=== PATIENT | female | born 1975 | race Two or more races ===

== ENCOUNTER 2025-01-01 00:21 | Emergency (ER) | payer BC, SELFPAY ==
[2025-01-01 00:23] VITALS: BMI 29.2
[2025-01-01 00:36] VITALS: BP 132/84; PULSE 63; RESP 16; TEMP 36.8; O2SAT 98
--- NOTE | 2025-01-01 00:43 | XR_ITS ---
Examination: CT brain head without contrast. 2-D sagittal coronal reconstructions Date and time of exam: January 01, 2025, 0224 hours INDICATIONS: Dizziness headaches and ear pain beginning 1 week ago CTDI: vol (mGy): 51.4 DLP: (mGycm): 971 Technique: Multiple CT axial sections of the brain have been obtained, 5 mm slice thickness. Contrast has not been administered. 2-D sagittal, coronal reconstructions have been obtained Low dose protocols were performed. One or more of the following dose reduction techniques were used; automated exposure control, adjustment of the mA and/or KV according to patient size, use of iterative reconstruction technique. Findings: No significant ventricular enlargement. Intra-axial or extra-axial hemorrhage density is not seen. No mass effect or midline shift Basal cisterns are not remarkable. Fourth ventricle is midline. Cranial vault intact. Impression: Negative for acute hemorrhage, mass effect or midline shift
--- NOTE | 2025-01-01 00:44 | PD.EDRME ---
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
[2025-01-01 01:04] LABS: Basophils # (Auto) 0.1 Thou/mm3 (0.0-0.2); Basophils % (Auto) 1 % (0-2.5); Eosinophils # (Auto) 0.2 Thou/mm3 (0.0-0.5); Eosinophils % (Auto) 3 % (0-10); Hematocrit 37.3 % (36.0-46.0); Hemoglobin 12.4 g/dL (12.0-16.0); Immature Granulocytes Auto 0.01 Thou/mm3 (0.00-0.00); Lymphocytes # (Auto) 3.3 Thou/mm3 (1.0-4.8); Lymphocytes % (Auto) 46 % (10-50); Mean Corpuscular HGB Conc 33.2 g/dl (31.0-37.0); Mean Corpuscular Hemoglobin 30.0 pg (25.0-35.0); Mean Corpuscular Volume 90 fL (80-100); Monocytes # (Auto) 0.6 Thou/mm3 (0.0-0.8); Monocytes % (Auto) 8 % (0-12); Neutrophils # (Auto) 3.0 Thou/mm3 (1.8-7.7); Neutrophils % (Auto) 42 % (37-80); Nucleated Red Blood Cell # 0.00 Thou/mm3 (0.00-0.00); Nucleated Red Blood Cell % 0 /100 WBC (0); Platelet Count 342 Thou/mm3 (140-440); RDW Standard Deviation 42.5 fL (36.4-46.3); Red Blood Count 4.14 Miln/mm3 (4.00-5.20); White Blood Count 7.1 Thou/mm3 (3.6-11.0)
[2025-01-01 01:37] LABS: Alanine Aminotransferase 9 U/L (10-49); Albumin, Serum 4.5 gm/dL (3.5-5.0); Albumin/Globulin Ratio 1.7 (1.2-2.2); Alkaline Phosphatase 77 U/L (46-116); Anion Gap 8 (7-16); Aspartate Amino Transferase 21 U/L (0-34); BUN/Creatinine Ratio 12 Ratio (12-20); Bilirubin,Total 0.3 mg/dL (0.3-1.2); Blood Urea Nitrogen 11 mg/dL (9-23); Calcium 8.9 mg/dL (8.3-10.6); Calcium (Corrected) 8.9 mg/dL (8.5-10.1); Carbon Dioxide 28.0 mMol/L (20.0-31.0); Chloride 105 mMol/L (98-107); Creatinine (Component) 0.9 mg/dL (0.6-1.3); Estimated Creatinine Clearance 74.1 mL/min (>60); Globulin 2.6 gm/dL (2.3-3.5); Glucose 104 mg/dL (74-106); Osmolality,Calculated 280 (275-295); Potassium 4.0 mMol/L (3.4-5.1); Sodium 141 mMol/L (136-145); Total Protein 7.1 gm/dL (5.7-8.2); Troponin I < 0.002 ng/mL (0.0-0.045); eGFR > 60 See Note
[2025-01-01 02:37] LABS: Collection Type, Urine Clean Catch
[2025-01-01 02:43] LABS: Bilirubin,Urine Negative (Negative); Blood,Urine 1+ (Negative); Clarity,Urine Clear (Clear/Hazy); Color,Urine Lt-Yellow (Lt Yel-Yel); Glucose, Urine Negative (Negative); Ketones,Urine Negative (Negative); Leukocyte Esterase,Urine Negative (Negative); Nitrite,Urine Negative (Negative); PH,Urine 7.0 (5.0-7.0); Protein,Urine Negative (Neg - Trace); RBC,Urine 15 /hpf (0-3); Specific Gravity,Urine 1.021 (1.001-1.035); Squamous Epithelial Cell,Urine 7 /hpf (0-5); Urobilinogen,Urine Negative mg/dL (0.0-1.0); WBC,Urine 2 /hpf (0-5)
[2025-01-01 02:54] LABS: HCG Qualitative,Urine Negative
--- NOTE | 2025-01-01 03:05 | PRELIM_ITS ---
CT scan of the head without intravenous contrast (axial sections with sagittal and coronal reformats). January 01, 2025 0224 hours Clinical History: dizziness No prior study is available for comparison. Findings: The evaluation is slightly limited due to motion artifact. No evidence of intracranial hemorrhage, mass effect or midline shift. The ventricles and CSF spaces are unremarkable. The calvarium is unremarkable. There is mild mucosal thickening in the left sphenoid sinus. The mastoid air cells and the other visualized paranasal sinuses are clear. Impression: No evidence of intracranial hemorrhage, mass effect or midline shift. Report Electronically Signed By: Tank Ribeiro 01/01/2025 3:05:21 AM [EST]
--- NOTE | 2025-01-01 03:53 | EDNOTE_ITS ---
ED Dizzyness RME/HPI General Chief Complaint: Dizziness Stated Complaint: DIZZY, DECREASE HEARING TO LEFT EAR Time Seen by Provider: 01/01/25 00:43 Arrival date/time: 01/01/25 00:21 This is a case of 49-year-old female who came into the emergency room due to headache dizziness for 1 day associated with bilateral ear pain patient states that the dizziness is spinning and no blurring of vision no numbness no tingling sensation no weakness noted Limitations: no limitations RME / HPI RME / HPI Narrative: 01/01/25 00:21 This is a case of 49-year-old female who came into the emergency room due to dizziness and headache for 3 days worsening of the symptoms 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 Exam: Awake alert oriented x 4 no focal deficit GCS 15/15 steady gait Impression: Dizziness Related Data Previous Rx's ?Medication ?Instructions ?Recorded hydrocodone 5 mg-acetaminophen 325 1 tab PO HS #20 tab s 09/05/17 mg tablet ([place]) amoxicillin 875 mg-potassium 1 tab PO BID #20 tabs clavulanate 125 mg tablet ibuprofen 800 mg tablet 800 mg PO Q8H PRN pain #20 t abs 01/01/25 meclizine 50 mg tablet 50 mg PO BID PRN dizziness # 20 tabs 01/01/25 ofloxacin 0.3 % ear drops 5 drp otic (ear) BID 7 days #10 mL 01/01/25 ondansetron 4 mg disintegrating 4 mg PO Q6H PRN nausea and 01/01/25 tablet vomiting #10 tabs Allergies Allergy/AdvReac Type Severity Reaction Status Date / Time No Known Allergies Allergy Verified 01/01/25 00:23 Review of Systems Review of Systems Systems Reviewed: All systems reviewed, normal except as documented Constitutional Constitutional: Reports system reviewed and no additional complaints, except as documented and Reports as per HPI Cardiovascular Cardiovascular: Reports system reviewed and no additional complaints, except as documented and Reports as per HPI Respiratory Respiratory: Reports system reviewed and no additional complaints, except as documented and Reports as per HPI Gastrointestinal Gastrointestinal: Reports system reviewed and no additional complaints, except as documented and Reports as per HPI Musculoskeletal Musculoskeletal: Reports system reviewed and no additional complaints, except as documented and Reports as per HPI Neurologic Neurologic: Reports system reviewed and no additional complaints, except as documented and Reports as per HPI Past Medical History Past Medical History CARDIAC: Negative Congestive Heart Failure RESPIRATORY: Negative Chronic Obstructive Pulmonary Disease (COPD) GENITOURINARY: Negative Renal Disease ENDOCRINE: Negative Diabetes Mellitus Type 1 or Diabetes Mellitus Type 2 Social History SMOKING STATUS: Never smoker ED Exam General Limitations: Present no limitations General appearance: Present alert, in no apparent distress and other (Patient is awake alert oriented not in distress nontoxic looking well-hydrated well- nourished) Head Head exam: Present atraumatic, normocephalic and normal inspection Eye Eye exam: Present normal appearance, PERRL, EOMI and other (PERRL EOM intact normal conjunctiva no papilledema) ENT ENT exam: Present normal exam, normal oropharynx, mucous membranes moist and other (Tympanic membrane red bulging not perforated bilateral canal red tender no mastoid tenderness no foreign body no earwax) Neck Neck exam: Present normal inspection, full ROM, trachea midline and other; Absent tenderness, meningismus, lymphadenopathy or thyromegaly Chest Chest inspection: Present normal inspection and symmetric chest wall rise; Absent tenderness Respiratory Respiratory exam: Present normal lung sounds bilaterally; Absent respiratory distress, wheezes, stridor, accessory muscle use or prolonged expiratory phase Cardiovascular Cardiovascular exam: Present regular rate, normal rhythm and normal heart sounds; Absent bradycardia, tachycardia, irregular rhythm, systolic murmur or diastolic murmur Abdominal Exam Abdominal exam: Present soft and normal bowel sounds; Absent distention, tenderness, guarding, rebound, rigidity, hyperactive bowel sounds, hypoactive bowel sounds or organomegaly Extremities Exam Extremities exam: Present normal inspection and full ROM Back Exam Back exam: Present normal inspection and full ROM Neurological Exam Neurological exam: Present alert, oriented X3, CN II-XII intact, normal gait, reflexes normal and other (Awake alert oriented x 4 no focal deficit GCS 15/15 steady gait memory intact no facial droop no slurring of speech motor or sensory reflex were normal in all extremities negative Babinski); Absent motor sensory deficit Psychiatric Psychiatric exam: Present normal affect and normal mood Skin Skin exam: Present warm, dry, intact and normal color Course Quality Measures none Orders Category Date Time Status EKG (ED ONLY) *Do not use* NOW Care 01/01/25 00:[address] head/brain wo con Stat Exams 01/01/25 00:43 Taken EKG (ED Only) Stat Exams 01/01/25 00:43 Ordered CBC Stat Lab 01/01/25 00:48 Completed Comprehensive Metabolic Panel Stat Lab 01/01/25 00:48 Completed HCG Qualitative,Urine Stat Lab 01/01/25 02:16 Completed Troponin I Stat Lab 01/01/25 00:48 Completed Urinalysis Stat Lab 01/01/25 02:16 Completed HYDROcodone*/APAP 5/325 [[place] 5/325] Med 01/01/25 03:43 Discontinued 1 tab PO X1 ONE Meclizine HCl [Antivert] Med 01/01/25 03:43 Discontinued 50 mg PO X1 ONE Ondansetron Odt [Zofran Odt] Med 01/01/25 03:43 Discontinued 4 mg PO X1 ONE Sodium Chloride 0.9% 1000 ml [Ns] 1,000 ml Med 01/01/25 03:43 Active IV 999 mls/hr Vital Signs Vital signs: Vital Signs Temperature 98.3 F 01/01/25 00:36 Pulse Rate 63 01/01/25 00:36 Respiratory Rate 16 01/01/25 00:36 Blood Pressure 132/84 H 01/01/25 00:36 Pulse Oximetry (%) 98 01/01/25 00:36 Oxygen Delivery Method Room Air 01/01/25 00:36 Oxygen saturation is 98% in room air Dizziness MDM Narrative MDM Narrative:: This is a case of 49-year-old female who came into the emergency room due to headache dizziness for 1 day associated with bilateral ear pain patient states that the dizziness is spinning and no blurring of vision no numbness no tingling sensation no weakness noted physical examination patient is awake alert oriented not in distress nontoxic looking well-hydrated well-nourished excellent skin turgor PERRL EOM intact normal conjunctiva no papilledema negative for meningeal sign lungs sound is clear no crackles no rales no retraction no stridor heart normal rate regular rhythm no murmur abdomen no guarding no rebou nd no rigidity no tenderness neurological exam is normal awake alert oriented x 4 no focal deficit GCS 15/15 steady gait vital signs stable BP stable not tachycardic not tachypneic not hypoxic afebrile blood test showed no leukocytosis no anemia kidney liver function is normal no electrolyte imbalance urinalysis normal troponin is negative EKG is normal sinus rhythm CT scan is normal based on my physical examination and history patient dizziness is possibly due to a ear infection patient was prescribed with Augmentin here in the emergency room and ofloxacin patient was given pain a hydration of normal saline [place] Zofran and meclizine which improved and resolved symptoms patient will follow-up with PCP in 2 days for reevaluation and to be referred to neurologist for headache and dizziness for any recurrence persistent worsening symptoms return precaution in the ER was advised Patient was discharged with comfortable condition walking with stable gait. Patient verbalized no further complains explained diagnosis and answered patient question. Patient is comfortable with the proposed management plan including the need to follow up with his/her primary care physician and any specialist if applicable Discussed patient for any urgent condition or worsening sx, He/She needed to go to emergency room immediately or call 911. Patient acknowledge the responsibility to follow up as instructed and to monitor her/his symptoms. For any persistence of the symptoms for more than 3-5 days return precaution advised. Discussed the result of the test and was given printed discharge instruction Patient data External records reviewed:: [facility] previous records Clinical information provided by:: patient Social determinants that could affect healthcare access:: none Patient has the following chronic illnesses:: None How is presenting disease/condition affected by chronic disease/condition?: no chronic disease Evaluation data The following diagnostics were reviewed and interpreted by me:: lab results, radiology exam(s) and EKG tracing(s) Lab and/or radiology exams considered but not ordered:: Reviewed Interpretation Summary: Reviewed Medications / Prescriptions Medications or Prescriptions considered but not ordered:: Given Medication administrations:: Medication Administration History Sodium Chloride (Ns) 1,000 mls @ 999 mls/hr IV .Q1H1M ONE Stop: 01/01/25 04:43 Discontinued Medications Hydrocodone Bitart/Acetaminophen (Hydrocodone/Apap 5/325 Tablet) 1 tab PO X1 ONE Stop: 01/01/25 03:44 Meclizine HCl (Meclizine Hcl 25 Mg Tablet) 50 mg PO X1 ONE Stop: 01/01/25 03:44 Ondansetron HCl (Ondansetron Odt 4 Mg Tabrap) 4 mg PO X1 ONE; Protocol Stop: 01/01/25 03:44 Given Consultations Consultation(s) initiated? (list below): No Diagnosis Dizziness Differential Diagnosis: benign paroxysmal positional vertigo, orthostatic hypotension and other (Otitis media) Most likely diagnosis given after review of the tests above:: Otitis media Admission Indicated Admission indicated?: not indicated Explain why admission is indicated or not indicated:: Not indicated Admission Request Was there a request for admission?: No Admission Attestation Admission request attestation: Not indicated Disposition Plan Disposition Plan: Discharge Discharge Attestation Discharge Attestation: The patient and all family members were given an opportunity to ask questions and understood the discharge instructions. Discharge instructions specifically effects, indications for sooner follow up or return to the emergency department, and the expected course of current diagnosis. Patient condition: Stable Discharge Plan Plan Patient Disposition: HOME (Self Care) Patient condition on transfer: Stable Prescriptions/Referrals Prescriptions/Med Rec: New amoxicillin-pot clavulanate 875-125 mg tablet 1 tab PO BID Qty: 20 0RF meclizine 50 mg tablet 50 mg PO BID PRN (Reason: dizziness) Qty: 20 0RF ibuprofen 800 mg tablet 800 mg PO Q8H PRN (Reason: pain) Qty: 20 0RF ofloxacin 0.3 % drops 5 drp otic (ear) BID 7 Days Qty: 10 0RF ondansetron 4 mg tablet,disintegrating 4 mg PO Q6H PRN (Reason: nausea and vomiting) Qty: 10 0RF No Action hydrocodone-acetaminophen [[place]] 5-325 mg tablet 1 tab PO HS MDD 1 Qty: 20 0RF Referrals: Margarita Orr MD [Primary Care Provider, Family Practice] - In 1 week Problem List Clinical Impression: Headache, Dizziness, Otitis media Patient/Caregiver Discharge Instructions Education Materials: Self-Care for Headaches, ED Dizziness, Uncertain Cause, ED Otitis Media Antibiotic ... Additional Instructions: Follow-up with your primary care physician in 2 days for reevaluation and to be referred to neurologist for further evaluation and treatment of dizziness and headache recurrence persistent worsening symptoms or any emergent concern call 911 or go to the nearest emergency room take your medication as directed finish the course of antibiotic increase water intake keep hydrated Pedialyte Gatorade for hydration is advised Print Language: Irish Stand Alone Forms: Karen Award Info., Patient Portal Info Letter PA/[employer] Supervising Physician PA/[employer] Supervising Physician: Dr. Cy Hassan
[2025-01-01 04:29] VITALS: BP 135/75; PULSE 58; RESP 18; TEMP 36.4; O2SAT 99
[2025-01-01] MEDS: MECLIZINE HCL 25 MG TABLET 50 MG PO (04:29)
[2025-01-01] MEDS: SODIUM CHLORIDE 0.9% 1000 ML 1,000 ML 999 ML IV (04:31)
== END 2025-01-01 05:34 | disposition home or self-care (01) ==
PROVIDERS: Nurse Practitioner Family; Emergency Provider Emergency Medicine; PCP Family Medicine
DX: H66.93 Otitis media, unspecified, bilateral (principal)
CPT/HCPCS: 36415; 70450; 80053; 81001; 81025; 84484; 85025; 93005; 96360; 99283; J7030; A9270